=== PATIENT | male | born 1955 | race Caucasian/White ===

== ENCOUNTER → 2016-08-16 | Outpatient (CLI) | payer OTHER | END | disposition home or self-care (01) | LOC: YCFC.O 08:16 | PROVIDERS: ATTEND Nurse Practitioner Family | DX: E11.9 Type 2 diabetes mellitus without complications (principal) ==

== ENCOUNTER → 2017-02-04 | Outpatient (CLI) | payer OTHER | END | disposition home or self-care (01) | LOC: YCFC.O 09:27 | PROVIDERS: ATTEND Nurse Practitioner Family | DX: I10 Essential (primary) hypertension (principal); E11.9 Type 2 diabetes mellitus without complications; E78.2 Mixed hyperlipidemia ==

== ENCOUNTER → 2017-09-28 | Outpatient (CLI) | payer OTHER | LOC: LAB.O 14:42 | DX: E11.9 Type 2 diabetes mellitus without complications (principal) ==

== ENCOUNTER → 2018-06-23 | Outpatient (CLI) | payer OTHER | LOC: YCFC.O 08:03 | DX: E11.9 Type 2 diabetes mellitus without complications (principal); I10 Essential (primary) hypertension ==

== ENCOUNTER → 2019-06-25 | Outpatient (CLI) | payer OTHER | LOC: LAB.O 08:35 | PROVIDERS: ATTEND Nurse Practitioner | DX: I10 Essential (primary) hypertension (principal); E11.9 Type 2 diabetes mellitus without complications ==

== ENCOUNTER → 2019-08-03 | Outpatient (CLI) | payer OTHER ==
--- NOTE | 2019-08-03 17:44 | RAD ---
EXAM DESCRIPTION: Chest,2 Views CLINICAL HISTORY: Cough COMPARISON: Previous study March 23, 2016 TECHNIQUE: PA/lateral FINDINGS: There is no acute appearing cardiac or pulmonary abnormality. Heart size is normal with normal pulmonary vascularity. No pleural effusion or pneumothorax. Lungs are clear with no consolidating infiltrate. Lateral view shows intact sternum and T-spine. IMPRESSION: No acute process is identified in the chest. Electronically signed by: Johann Caraballo MD 08/03/2019 5:42 PM [facility]
== END ==
LOC: YCFC.O 15:36
PROVIDERS: ATTEND Nurse Practitioner
DX: R05 Cough (principal)

== ENCOUNTER 2019-08-12 16:16 | Emergency (ER) | payer OTHER ==
[2019-08-12] MEDS ORDERED: KETOROLAC TROMETHAMINE INJ 30 MG/ML VIAL IM ONE (16:27)
--- NOTE | 2019-08-12 16:30 | ED.PDOC ---
History of Present Illness - General Time Seen by Provider: 08/12/19 16:19 - History of Present Illness Initial Comments: Pt fell down 3 days back , having pain in the lower back and R hip , decrease range of motion to R hip 2/2 pain , however still walking Method of Injury: fell Improving Factors: nothing Worsening Factors: movement Allergies/Adverse Reactions: Allergies Penicillins Allergy (Verified 03/20/16 21:03) Unknown Home Medications: Ambulatory Orders Fexofenadine HCl [Serina Allergy] 180 mg PO DAILY 03/20/16 Lisinopril & Hydrochlorothiazi [Lisinopril/Hctz 20-25 mg] 1 tab PO DAILY 03/20/16 Lovastatin 20 mg PO BEDTIME 03/20/16 Multiple Vitamins W/ Minerals [Centrum Silver] 1 ea PO DAILY 03/20/16 Omeprazole Magnesium [Prilosec Otc] 20 mg PO BID PRN 03/20/16 Sertraline HCl [Zoloft] 25 mg PO DAILY 03/20/16 metFORMIN HCL [Glucophage] 1,000 mg PO BID 03/20/16 Naproxen [Naprosyn] 500 mg PO BID #10 tab 08/12/19 Review of Systems - Review of Systems Constitutional: States: no symptoms reported EENTM: States: no symptoms reported Respiratory: States: no symptoms reported Cardiology: States: no symptoms reported Gastrointestinal/Abdominal: States: no symptoms reported Genitourinary: States: no symptoms reported Musculoskeletal: States: see HPI Skin: States: no symptoms reported Neurological: States: no symptoms reported Endocrine: States: no symptoms reported Hematologic/Lymphatic: States: no symptoms reported Past Medical History (General) - Patient Medical History Hx Stroke: No Hx Congestive Heart Failure: No Hx Hypertension: Yes Hx Diabetes: Yes Hx MRSA: No - Vaccination History Hx Influenza Vaccination: No Hx Pneumococcal Vaccination: No - Social History Hx Tobacco Use: No Hx Depression: Yes Family Medical History - Family History Father Living Status: Hx Family Cancer: Yes - leukemia Physical Exam - Physical Exam General Appearance: Alert, Comfortable Eyes, Ears, Nose, Throat: normal ENT inspection Neck: non-tender, full range of motion, supple, normal inspection Back: normal inspection, vertebral tenderness Thigh/Hip: bone tenderness, limited ROM Leg: pain Neuro/Tendon: normal sensation Mental Status: alert, oriented x 3 Skin: normal color, warm/dry Departure - Departure Clinical Impression: Back injuries, Fall, Hip pain, right Time of Disposition: 17:44 Disposition: Discharge to Home or Self Care Condition: Good Departure Forms: ED Discharge - Pt. Copy, Patient Portal Self Enrollment Instructions: DI for Trauma Diet: resume usual diet Activity: increase activity as tolerated, walking as tolerated Referrals: Sagrario Shannon FNP [Primary Care Provider] - 1-2 Weeks Prescriptions: Naproxen [Naprosyn] 500 mg PO BID #10 tab Home Medications: Ambulatory Orders Fexofenadine HCl [Serina Allergy] 180 mg PO DAILY 03/20/16 Lisinopril & Hydrochlorothiazi [Lisinopril/Hctz 20-25 mg] 1 tab PO DAILY 03/20/16 Lovastatin 20 mg PO BEDTIME 03/20/16 Multiple Vitamins W/ Minerals [Centrum Silver] 1 ea PO DAILY 03/20/16 Omeprazole Magnesium [Prilosec Otc] 20 mg PO BID PRN 03/20/16 Sertraline HCl [Zoloft] 25 mg PO DAILY 03/20/16 metFORMIN HCL [Glucophage] 1,000 mg PO BID 03/20/16 Naproxen [Naprosyn] 500 mg PO BID #10 tab 08/12/19
[2019-08-12 16:38] VITALS: TEMP 97.8; O2SAT 96
--- NOTE | 2019-08-12 17:34 | RAD ---
EXAM DESCRIPTION: Hip,Right 2 Views CLINICAL HISTORY: injury COMPARISON: None FINDINGS: Two x-ray views of the right hip were submitted. There is no acute fracture or dislocation. Bone mineralization is within normal limits. There is no radiopaque foreign body material. IMPRESSION: No acute fracture or dislocation. Electronically signed by: Emmanuel Mcnally MD 08/12/2019 5:33 PM [employer]
--- NOTE | 2019-08-12 17:42 | CT ---
EXAM DESCRIPTION: Lumbar Spine CLINICAL HISTORY: injury COMPARISON: None Available. TECHNIQUE: Contiguous axial images of lumbar spine were obtained followed by reconstruction images. This exam was performed according to our departmental dose-optimization program, which includes automated exposure control, adjustment of the mA and/or kV according to patient size and/or use of iterative reconstruction technique. FINDINGS: There is anatomic alignment of the lumbar spine. Vertebral body height is preserved without evidence of acute fracture or spondylolisthesis. There is spondylosis formation at all levels. Increased sclerosis of the inferior aspect of the L1 and superior aspect of the L2 vertebral body with narrowing of the intervertebral disc space could be secondary to degenerative changes. There is facet hypertrophy at L5/S1, L4/L5 and L3/L4. At L1-L2, there is mild left neural foramina narrowing. There is no canal stenosis. At L2/L3, there is no neural foramina narrowing. Mild narrowing of the canal due to mild facet hypertrophy, hypertrophy of the posterior elements and mild concentric disc bulge. Similar findings are noted at L3/L4 and L4/L5. There is sclerosis of the sacroiliac joints. IMPRESSION: Degenerative changes. No acute fracture or spondylolisthesis. Electronically signed by: Emmanuel Mcnally MD 08/12/2019 5:40 PM [facility]
[2019-08-12 18:36] VITALS: BP 141/74
== END 2019-08-12 18:25 | disposition home or self-care (01) ==
LOC: ER 16:16
DX: S39.92XA Unspecified injury of lower back, initial encounter (principal); M25.551 Pain in right hip; I10 Essential (primary) hypertension; E11.9 Type 2 diabetes mellitus without complications; W19.XXXA Unspecified fall, initial encounter; Y92.9 Unspecified place or not applicable; Z88.0 Allergy status to penicillin; Z79.84 Long term (current) use of oral hypoglycemic drugs; Z79.899 Other long term (current) drug therapy
CPT/HCPCS: 72131; 73502; J1885

== ENCOUNTER 2019-08-25 20:12 | Emergency (ER) | payer OTHER ==
--- NOTE | 2019-08-25 21:17 | ED.PDOC ---
History of Present Illness - General Chief Complaint: Trauma Stated Complaint: Ground-level fall Time Seen by Provider: 08/25/19 20:39 Source: patient Exam Limitations: no limitations - History of Present Illness Initial Comments: This is a 64-year-old male who presents after a ground-level fall that occurred 30 minutes prior to arrival. Patient states he was at a [facility], fell in a poorly lit parking lot stepping off a curb. He fell and hit his face and nose on concrete, as well as his left hand. He denies any LOC. He denies any neck pain. He does have a history of chronic back pain related to old compression fractures, reports slightly increased low back pain tonight. He was able to walk without difficulty after the fall. He takes aspirin only, no other blood thinners. He denies any headache, vision changes, weakness/numbness/tingling, or vomiting. Occurred: just prior to arrival Severity: mild Injuries/Pain Location: head, face, upper extremity Reason for Fall: tripped Loss of Consciousness: no loss of consciousness Improving Factors: nothing Worsening Factors: nothing Allergies/Adverse Reactions: Allergies Penicillins Allergy (Verified 03/20/16 21:03) Unknown Home Medications: Ambulatory Orders Fexofenadine HCl [Serina Allergy] 180 mg PO DAILY 03/20/16 Lisinopril & Hydrochlorothiazi [Lisinopril/Hctz 20-25 mg] 1 tab PO DAILY 03/20/16 Lovastatin 20 mg PO BEDTIME 03/20/16 Multiple Vitamins W/ Minerals [Centrum Silver] 1 ea PO DAILY 03/20/16 Omeprazole Magnesium [Prilosec Otc] 20 mg PO BID PRN 03/20/16 Sertraline HCl [Zoloft] 25 mg PO DAILY 03/20/16 metFORMIN HCL [Glucophage] 1,000 mg PO BID 03/20/16 Naproxen [Naprosyn] 500 mg PO BID #10 tab 08/12/19 Review of Systems - Review of Systems Constitutional: Denies: chills, fever, weakness EENTM: States: nose pain. Denies: eye pain, blurred vision, ear pain, nose congestion, mouth pain, mouth swelling Respiratory: Denies: cough, short of breath, wheezing Cardiology: Denies: chest pain, edema, palpitations Gastrointestinal/Abdominal: Denies: abdominal pain, diarrhea, nausea, vomiting Genitourinary: Denies: dysuria, frequency, hematuria Musculoskeletal: States: back pain. Denies: joint pain, joint swelling, muscle pain, muscle stiffness, neck pain Skin: States: lesions Neurological: Denies: headache, paresthesia, seizure, tingling Hematologic/Lymphatic: Denies: blood clots, easy bleeding, easy bruising All other Systems: Reviewed and Negative Past Medical History (General) - Patient Medical History Hx Seizures: No Hx Stroke: No Hx Dementia: No Hx Asthma: No Hx of COPD: No Hx Cardiac Disorders: No Hx Congestive Heart Failure: No Hx Pacemaker: No Hx Hypertension: Yes Hx Thyroid Disease: No Hx Diabetes: Yes Hx Gastroesophageal Reflux: No Hx Renal Disease: No Hx Cancer: No Hx of HIV: No Hx Hepatitis C: No Hx MRSA: No Surgical History: other - Vaccination History Hx Tetanus, Diphtheria Vaccination: No Hx Influenza Vaccination: No Hx Pneumococcal Vaccination: No - Social History Hx Tobacco Use: No Hx Chewing Tobacco Use: No Hx Alcohol Use: No Hx Substance Use: No Hx Substance Use Treatment: No Hx Depression: No Feels Threatened In Home Enviroment: No Feels Threatened In a Relationship: No Hx Physical Abuse: No Hx Emotional Abuse: No Hx Suspected Abuse: No - Female History Patient is a Female of Child Bearing Age (10 -59 yrs old): No Patient : No Physical Exam - Physical Exam General Appearance: Alert, Comfortable, No apparent distress Head Injury: other - Multiple superficial abrasions to the nasal bridge and right cheek. Negative moe sign, no raccoon eyes. There is no septal hematoma, no epistaxis. Midface stable. No dental malocclusion. Eye Exam: bilateral normal ENT Exam: no dental injury, other - No hemotympanum, no septal hematomas.There is a 0.5 cm superficial linear laceration over the right nasal bridge with some mild active bleeding, easily controlled with pressure Cardiovascular/Respiratory: regular rate, rhythm, no M/R/G, normal peripheral pulses, no JVD Gastrointestinal/Abdominal: non tender, soft Back Exam: vertebral tenderness - There is mild upper midline tenderness, no step-offs or deformities, no overlying skin changes. There is no thoracic or cervical spine tenderness. He has full range of motion of the hands, fingers, wrist. No significant bony tenderness, deformities, swelling, or ecchymosis. 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 No dislocations. X-ray reviewed personally by me at 9:33 PM. LUMBAR SPINE: No fracture, mild loss of disc height, no acute process. X-ray re viewed personally by me at 9:33 PM. Procedures - Laceration/Wound Repair Anterior Face Wound Length (cm): 0.5 - 0.5 cm superficial laceration approximately correction through subcutaneous tissue, over the right nasal bridge Wound's Depth, Shape: superficial Wound Explored: no foreign body removed Betadine Prep?: No Wound Repaired With: dermabond Layer Closure?: No Sterile Dressing Applied?: No Splint Applied?: No Sling Applied?: No Departure - Departure Clinical Impression: Fall, Sprain, lumbar, Laceration of nose, Abrasion, multiple sites Disposition: Discharge to Home or Self Care Condition: Good Departure Forms: ED Discharge - Pt. Copy, Patient Portal Self Enrollment Instructions: DI for Trauma, Laceration Repair With Glue (DC), Lumbar Muscle Strain (DC), Skin Abrasions Referrals: Sagrario Shannon FNP [Primary Care Provider] - 1-5 Days Home Medications: Ambulatory Orders Fexofenadine HCl [Serina Allergy] 180 mg PO DAILY 03/20/16 Lisinopril & Hydrochlorothiazi [Lisinopril/Hctz 20-25 mg] 1 tab PO DAILY 03/20/16 Lovastatin 20 mg PO BEDTIME 03/20/16 Multiple Vitamins W/ Minerals [Centrum Silver] 1 ea PO DAILY 03/20/16 Omeprazole Magnesium [Prilosec Otc] 20 mg PO BID PRN 03/20/16 Sertraline HCl [Zoloft] 25 mg PO DAILY 03/20/16 metFORMIN HCL [Glucophage] 1,000 mg PO BID 03/20/16 Naproxen [Naprosyn] 500 mg PO BID #10 tab 08/12/19
--- NOTE | 2019-08-25 22:09 | RAD ---
EXAM DESCRIPTION: Hand,Left 3 Views CLINICAL HISTORY: fall, injury COMPARISON: None. FINDINGS: 3 views of the left hand. Severe osteoarthritic change first carpometacarpal joint. Normal osseous mineralization. Remote injury of the fourth distal phalanx. No acute fracture identified. IMPRESSION: 1. No acute fracture identified. Electronically signed by: Dick Merino 08/25/2019 10:08 PM [facility]
--- NOTE | 2019-08-25 22:10 | RAD ---
EXAM DESCRIPTION: Lumbar Spine 3 Views CLINICAL HISTORY: 64 years ,Male fall, injury COMPARISON: CT 08/12/2019 TECHNIQUE: Three views FINDINGS: Vertebral body alignment is unremarkable. No acute fractures are identified. Narrowing of the lumbar disc interspaces with marginal osteophytosis at multiple levels. Chronic appearing wedging at L2 and L3. There is moderate to marked degenerative change with sclerosis at the T3 level. Schmorl's node at L4 is less well seen on plain film. IMPRESSION: No acute fracture is identified. Degenerative changes Electronically signed by: Donna Nelson MD 08/25/2019 10:08 PM [facility]
[2019-08-25 22:19] VITALS: O2SAT 94
[2019-08-25 22:38] VITALS: BP 108/59; TEMP 98.1
== END 2019-08-25 22:28 | disposition home or self-care (01) ==
LOC: ER 20:12
DX: S01.21XA Laceration without foreign body of nose, initial encounter (principal); S33.5XXA Sprain of ligaments of lumbar spine, initial encounter; S00.81XA Abrasion of other part of head, initial encounter; S60.512A Abrasion of left hand, initial encounter; I10 Essential (primary) hypertension; E11.9 Type 2 diabetes mellitus without complications; Z88.0 Allergy status to penicillin; Z79.899 Other long term (current) drug therapy; Z79.82 Long term (current) use of aspirin; W10.1XXA Fall (on)(from) sidewalk curb, initial encounter; Y92.481 Parking lot as the place of occurrence of the external cause

== ENCOUNTER → 2020-01-15 | Outpatient (CLI) | payer OTHER | LOC: YCFC.O 11:28 | PROVIDERS: ATTEND Family Medicine | DX: I10 Essential (primary) hypertension (principal); E11.9 Type 2 diabetes mellitus without complications; R53.83 Other fatigue ==

== ENCOUNTER → 2020-04-02 | Outpatient (CLI) | payer OTHER | LOC: YCFC.O 16:36 | PROVIDERS: ATTEND Family Medicine | DX: Z03.89 Encounter for observation for other suspected diseases and conditions ruled out (principal) ==

== ENCOUNTER → 2020-04-07 | Outpatient (CLI) | payer MEDICARE, OTHER | LOC: YCFC.O 09:33 | PROVIDERS: ATTEND Family Medicine | DX: E11.9 Type 2 diabetes mellitus without complications (principal); E78.2 Mixed hyperlipidemia ==

== ENCOUNTER → 2020-07-15 | Outpatient (CLI) | payer MEDICARE | LOC: YCFC.O 09:24 | PROVIDERS: ATTEND Family Medicine | DX: E11.9 Type 2 diabetes mellitus without complications (principal); R53.83 Other fatigue ==

== ENCOUNTER 2020-08-22 21:00 | Emergency (ER) | payer MEDICARE ==
[2020-08-22 21:21] VITALS: TEMP 98; O2SAT 98
--- NOTE | 2020-08-22 22:04 | RAD ---
EXAM: XR Left Elbow Complete, 3 or More Views CLINICAL HISTORY: The patient is 65 years old and is Male; fall pain TECHNIQUE: Frontal, lateral and oblique views of the left elbow. COMPARISON: No relevant prior studies available. FINDINGS: BONES/JOINTS: Minimal joint space narrowing is present. There is no joint effusion. No acute fracture. No dislocation. SOFT TISSUES: Unremarkable. IMPRESSION: No acute findings in the left elbow. Electronically signed by: Renee Avalos MD 08/22/2020 10:02 PM [facility]
--- NOTE | 2020-08-22 22:07 | RAD ---
EXAM DESCRIPTION: XR Hand, Right 2 Views CLINICAL HISTORY: 65 years Male pain 2nd digit TECHNIQUE: Three views of the right hand are provided. COMPARISON: No prior exams provided for comparison. FINDINGS: There is no acute right hand fracture, dislocation, or foreign body. There is severe osteoarthritis at the basal joint of the right thumb. There is mild osteoarthritis at the second and third metacarpophalangeal joints and at all distal interphalangeal joints. IMPRESSION: No acute findings in the right hand. Osteoarthritis as described. Electronically signed by: Kandace Silva MD 08/22/2020 10:05 PM [facility]
--- NOTE | 2020-08-22 22:23 | ED.PDOC ---
History of Present Illness - General Chief Complaint: Upper Extremity Injury Stated Complaint: lefft elbow pain, fall Time Seen by Provider: 08/22/20 21:20 Source: patient Exam Limitations: no limitations - History of Present Illness Initial Comments: The patient is a 65-year-old male presented emergency room after having fallen on accident just prior to arrival. He landed on his left elbow and also somehow injured his right index finger giving a lancinating radicular pain to the right index finger. There is no abrasion or deformity of the right finger. Passive and active range of motion are within normal limits. No no pain over the joints. The patient has an abrasion over the left elbow. He moves the elbow well. He is neurovascularly intact distally. Timing/Duration: momentarily Severity: moderate Improving Factors: nothing Worsening Factors: nothing Associated Symptoms: denies symptoms Allergies/Adverse Reactions: Allergies Penicillins Allergy (Verified 03/20/16 21:03) Unknown Home Medications: Ambulatory Orders Fexofenadine HCl [Serina Allergy] 180 mg PO DAILY 03/20/16 Lisinopril & Hydrochlorothiazi [Lisinopril/Hctz 20-25 mg] 1 tab PO DAILY 03/20/16 Lovastatin 20 mg PO BEDTIME 03/20/16 Multiple Vitamins W/ Minerals [Centrum Silver] 1 ea PO DAILY 03/20/16 Omeprazole Magnesium [Prilosec Otc] 20 mg PO BID PRN 03/20/16 Sertraline HCl [Zoloft] 25 mg PO DAILY 03/20/16 metFORMIN HCL [Glucophage] 1,000 mg PO BID 03/20/16 Naproxen [Naprosyn] 500 mg PO BID #10 tab 08/12/19 Review of Systems - Review of Systems Constitutional: States: no symptoms reported EENTM: States: no symptoms reported Respiratory: States: no symptoms reported Cardiology: States: no symptoms reported Gastrointestinal/Abdominal: States: no symptoms reported Genitourinary: States: no symptoms reported Musculoskeletal: States: see HPI Skin: States: see HPI Neurological: States: see HPI Endocrine: States: no symptoms reported All other Systems: No Change from Baseline Past Medical History (General) - Patient Medical History Hx Seizures: No Hx Stroke: No Hx Dementia: No Hx Asthma: No Hx of COPD: No Hx Cardiac Disorders: No Hx Congestive Heart Failure: No Hx Pacemaker: No Hx Hypertension: Yes Hx Thyroid Disease: No Hx Diabetes: Yes Hx Gastroesophageal Reflux: No Hx Renal Disease: No Hx Cancer: No Hx of HIV: No Hx Hepatitis C: No Hx MRSA: No - Vaccination History Hx Tetanus, Diphtheria Vaccination: No Hx Influenza Vaccination: No Hx Pneumococcal Vaccination: No - Social History Hx Tobacco Use: No Hx Chewing Tobacco Use: No Hx Alcohol Use: No Hx Substance Use: No Hx Substance Use Treatment: No Hx Depression: No Hx Physical Abuse: No Hx Emotional Abuse: No Hx Suspected Abuse: No - Female History Patient : No Family Medical History - Family History Father Living Status: Hx Family Cancer: Yes - leukemia Physical Exam - Physical Exam General Appearance: Alert, Comfortable, No apparent distress Eye Exam: bilateral normal Ears, Nose, Throat: hearing grossly normal Neck: full range of motion, supple Respiratory: no respiratory distress, no accessory muscle use Cardiovascular/Chest: normal peripheral pulses, no edema Peripheral Pulses: radial,right: 2+, radial,left: 2+ Rectal Exam: deferred Extremity: normal range of motion, no pedal edema, normal capillary refill, other - See history of present illness 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 The patient has what appears to be a mild radicular type pain to the right index finger after the fall. This is likely due to direct impact on the nerve causing irritation. X-ray of the hand is within normal limits and function appears normal. I do suspect that symptoms will gradually subside over the next month. No further treatment is warranted for the finger. The patient also fell on the left elbow and x-rays of the area are reassuring. Function remains reassuring. He has a mild abrasion on the elbow and should wash it twice daily with an antibacterial soap and water. Aleve 2 tablets twice daily for the next 3 to 4 days should help as well. ER warnings are given for any obvious worsening. vamshi rose [id number] - Results/Orders Results/Orders: X-rays of the right hand and left elbow show no evidence of acute pathology. Chronic degenerative changes are noted. Departure - Departure Clinical Impression: Fall from standing Qualifiers: Encounter type: initial encounter Qualified Code(s): W19.XXXA - Unspecified fall, initial encounter Elbow abrasion Qualifiers: Encounter type: initial encounter Laterality: left Qualified Code(s): S50.312A - Abrasion of left elbow, initial encounter Disposition: Discharge to Home or Self Care Condition: Fair Departure Forms: ED Discharge - Pt. Copy, Patient Portal Self Enrollment Diet: regular diet Activity: increase activity as tolerated Referrals: Eloisa Dobbins MD [Primary Care Provider] - 1-2 Weeks Home Medications: Ambulatory Orders Fexofenadine HCl [Serina Allergy] 180 mg PO DAILY 03/20/16 Lisinopril & Hydrochlorothiazi [Lisinopril/Hctz 20-25 mg] 1 tab PO DAILY 03/20/16 Lovastatin 20 mg PO BEDTIME 03/20/16 Multiple Vitamins W/ Minerals [Centrum Silver] 1 ea PO DAILY 03/20/16 Omeprazole Magnesium [Prilosec Otc] 20 mg PO BID PRN 03/20/16 Sertraline HCl [Zoloft] 25 mg PO DAILY 03/20/16 metFORMIN HCL [Glucophage] 1,000 mg PO BID 03/20/16 Naproxen [Naprosyn] 500 mg PO BID #10 tab 08/12/19 Additional Instructions: The patient is a 65-year-old male presented emergency room after an accidental fall. The patient has what appears to be a mild radicular type pain to the right index finger after the fall. This is likely due to direct impact on the nerve causing irritation. X-ray of the hand is within normal limits and function appears normal. I do suspect that symptoms will gradually subside over the next month. No further treatment is warranted for the finger. The patient also fell on the left elbow and x-rays of the area are reassuring. Function remains reassuring. He has a mild abrasion on the elbow and should wash it t wice daily with an antibacterial soap and water. Aleve 2 tablets twice daily for the next 3 to 4 days should help as well. ER warnings are given for any obvious worsening.
[2020-08-22 22:59] VITALS: BP 154/88
== END 2020-08-22 23:02 | disposition home or self-care (01) ==
LOC: ER 21:00
DX: S50.312A Abrasion of left elbow, initial encounter (principal); M79.644 Pain in right finger(s); I10 Essential (primary) hypertension; E11.9 Type 2 diabetes mellitus without complications; Z79.899 Other long term (current) drug therapy; Z79.84 Long term (current) use of oral hypoglycemic drugs; Z88.0 Allergy status to penicillin; W18.30XA Fall on same level, unspecified, initial encounter; Y92.9 Unspecified place or not applicable